=== PATIENT | male | born 1975 | race Caucasian/White ===

== ENCOUNTER → 2022-07-05 | Outpatient (CLI) | payer BC | LOC: SLEEP | PROVIDERS: ATTEND Family Medicine | DX: G47.33 Obstructive sleep apnea (adult) (pediatric) (principal); G47.10 Hypersomnia, unspecified; G25.89 Other specified extrapyramidal and movement disorders; G47.61 Periodic limb movement disorder | CPT/HCPCS: 0223U; 36415; 95810 ==